=== PATIENT | male | born 1980 ===

== ENCOUNTER 2017-01-27 05:41 | Day surgery (SDC) | payer OTHER ==
--- NOTE | 2017-01-26 18:42 | Pre-Procedure Note/Attestation ---
Pre-Procedure Note/Attestation Complete Prior to Procedure Planned Procedure: bilateral Procedure Narrative: BIlateral ear canalplasty Indications for Procedure Pre-Operative Diagnosis: Bilateral ear canal stenosis Attestation I attest that I discussed the nature of the procedure; its benefits; risks and complications; and alternatives (and the risks and benefits of such alternatives ), prior to the procedure, with the patient (or the patient's legal visitor services representative). I attest that, if there was a reasonable possibility of needing a blood transfusion, the patient (or the patient's legal visitor services representative) was given the [facility] standardized written summary, pursuant to the [place] Blood Safety Act ([place] Health and Safety Code # 1645, as amended). I attest that I re-evaluated the patient just prior to the surgery and that there has been no change in the patient's H&P, Pre op labs, CXR and EKG are not indicated in this otherwise healthy male under 45. MOY RAMIREZ Jan 26, 2017 18:42
--- NOTE | 2017-01-26 21:30 | Pre-op HX & Phy Repo 2 SIG ---
DATE OF ADMISSION: 01/27/2017 DATE OF SURGERY: 01/27/2017. INDICATION FOR SURGERY: The patient with bilateral ear canal stenosis for bilateral canalplasty. PAST MEDICAL HISTORY: Unremarkable for heart, liver, lung, kidney, tobacco, alcohol, or chemical dependency issues. ALLERGIES: No known drug allergies. SOCIAL HISTORY: He is single. No children. He eats all foods. FAMILY MEDICAL HISTORY: Significant for diverticulosis. He has never been a smoker. PHYSICAL EXAMINATION: VITAL SIGNS: He is 70 inches and 170 pounds. BMI 24.39. Blood pressure 120/80 in my office last week. Temperature 98.6, pulse 73, and respiratory rate 13. HEENT: Head, normocephalic. Eyes, pupils are equal, round, and reactive to light and accommodation. Extraocular muscles intact. Ears, bilateral ear canal stenosis. HEART: Normal S1 and S2. No S3 or S4. No murmurs, bruits, gallops, or rubs. CHEST: Clear to auscultation and percussion. ABDOMEN: Soft and nontender. Normoactive bowel sounds. EXTREMITIES: Grossly normal. NEUROLOGIC: Intact. ASSESSMENT: Bilateral ear canal stenosis. PLAN: Bilateral ear canalplasty. I have discussed this with the patient as well as provided him with printed pre op and post op instructions. His hearing will be impaired for a week or two because of the gel inside his ear canals. All risks and benefits have been discussed with the patient in the office last week. He signed consent. He has preop and postop medicines including Seanor for pain. The patient is stable for surgery. He does not need laboratories, as he is otherwise a healthy male under 40 years old. Thank you very much for asking my opinion in the care and treatment of this patient. Jaquan Vargas M.D. DR: RODERICK JOB#: [id number] CC: JUSTIN
[~2017-01-27] VITALS: Ht 177.8 cm; Wt 77.1 kg
[2017-01-27] VITALS (7 sets, daily range): BP systolic 115–130; BP diastolic 53–80
[~2017-01-27 05:41] MED LIST: Dexamethasone 4mg/ml vial IVP ONE; ceFAZolin sod 1 GM in D5W 55 ML IV ONE
[2017-01-27] MEDS ORDERED: NKM (06:12)
--- NOTE | 2017-01-27 06:59 | Anethesia Preoperative Eval ---
Anesthesia Pre-op PMH/ROS General Date of Evaluation: Jan 27, 2017 Anesthesiologist: Daniel ASA Score: ASA 2 Mallampati Score Class I : Soft palate, uvula, fauces, pillars visible Class II: Soft palate, uvula, fauces visible Class III: Soft palate, base of uvula visible Class IV: Only hard plate visible Mallampati Classification: Class II Surgeon: Sam Diagnosis: Bilateral ear canal stenosis Surgical Procedure: Bilateral canalplasty Anesthesia History: none Family History: no anesthesia problems Allergies: Coded Allergies: No Known Allergies (Unverified , 01/26/17) Medications: see eMAR Past Medical History Cardiovascular: Denies: CAD, HTN, NC, arrhythmia, other, valve dz Pulmonary: Denies: COPD, AGA, asthma, other Gastrointestinal/Genitourinary: Denies: CRI, ESRD, GERD, other Neurologic/Psychiatric: Denies: CVA, TIA, dementia, depression/anxiety, other Endocrine: Denies: DM, hypothyroidism, other, steroids HEENT: Reports: other - ear canal stenosis, nasal congestio-chronic, Denies: ABSENTEE-SHAWNEE (L), ABSENTEE-SHAWNEE (R), cataract (L), cataract (R), glaucoma Hematology/Immune: Denies: DVT, anemia, bleeding disorder, other Musculoskeletal/Integumentary: Denies: DDD, DJD, OA, RA, edema, other PSxH Narrative: Vocal cord sx Anesthesia Pre-op Phys. Exam Physician Exam Last Vital Signs Date Time Temp Pulse Resp B/P Pulse Ox O2 Delivery O2 Flow Rate FiO2 01/27/17 06:12 97.9 50 20 130/80 100 Room Air Constitutional: NAD Cardiovascular: RRR Respiratory: CTA Airway Exam Mallampati Score: Class II MO: full ROM: full Teeth: intact Anesthesia Pre-op A/P Labs see chart Studies Pre-op Studies: EKG - sr Risk Assessment & Plan Assessment: ASA II Plan: GA Status Change Before Surgery: No Pre-Antibiotics Drug: Ancef 1g Given Within 1 Hr of Incision: MICHELLE Myers M.D. Jan 27, 2017 06:59
[2017-01-27] MEDS ORDERED: Hydromorphone 0.5mg/0.5ml inj IVP PRN (07:00)
[2017-01-27] MEDS ORDERED: LORazepam Inj 2mg/ml 1ml IV PRN (07:00)
[2017-01-27] MEDS ORDERED: Metoclopramide 10mg/2ml Inj IVP PRN ×2 (07:00→08:45)
[2017-01-27] MEDS ORDERED: Midazolam 2mg/2ml Inj IVP PRN (07:00)
[2017-01-27] MEDS ORDERED: fentaNYL 100 mcg/2 mL IV PRN (07:00)
[2017-01-27] MEDS ORDERED: LR 1000ml 1,000 ML IVLG SCH (07:00)
[2017-01-27] MEDS ORDERED: DiphenhydrAMINE 50mg/ml Inj IVP PRN (07:00)
--- NOTE | 2017-01-27 07:00 | Immediate Post-Op Evaluation ---
Immediate Post-Op Evalulation Immediate Post-Op Evalulation Procedure: Bilateral canalplasty Date of Evaluation: Jan 27, 2017 Time of Evaluation: 08:40 IV Fluids: 700 Blood Products: 0 Estimated Blood Loss: 3 Urinary Output: 0 Blood Pressure Systolic: 115 Blood Pressure Diastolic: 53 Pulse Rate: 59 Respiratory Rate: 16 O2 Sat by Pulse Oximetry: 100 Temperature (Fahrenheit): 97.6 Pain Score (1-10): 0 Nausea: No Vomiting: No Complications 0 Patient Status: awake, reacts, patent, none Hydration Status: adequate Drug: Ancef 1g Given Within 1 Hr of Incision: MICHELLE Myers M.D. Jan 27, 2017 07:00
[2017-01-27] MEDS ORDERED: Neosporin Oint Ud Pkt TOPIC ONE (07:12)
[2017-01-27] MEDS ORDERED: Lidocaine 1% 10mg/ml/Epi 0.005mg/ml 30ml vial INJ ONE (07:12)
[2017-01-27] MEDS ORDERED: Propofol 10mg/ml 20ml IV ONE (07:30)
[2017-01-27] MEDS ORDERED: Midazolam 2mg/2ml Inj ONE (07:30)
[2017-01-27] MEDS ORDERED: Lidocaine 1% MPF 10mg/ml 5ml ONE (07:30)
[2017-01-27] MEDS ORDERED: NS Irrig 1000ml ONE (07:30)
[2017-01-27] MEDS ORDERED: Dexamethasone 4mg/ml vial ONE (07:30)
[2017-01-27] MEDS ORDERED: Metoclopramide 10mg/2ml Inj ONE (07:30)
[2017-01-27] MEDS ORDERED: fentaNYL 250mcg/5ml ONE (07:30)
[2017-01-27] MEDS ORDERED: LR 1000ml ONE (07:30)
[2017-01-27] MEDS ORDERED: Sterile Water Irrig 1000ml IRRIG ONE (07:30)
[2017-01-27] MEDS ORDERED: [UNRECOGNIZED DRUG - OTHER] ORAL ONE (08:30)
--- NOTE | 2017-01-27 08:36 | Brief Operative Note ---
Immediate Post Operative Note Operative Note Chief Complaint: BIlateral ear canal stenosis Pre-op Diagnosis: Bilateral ear canal stenosis Procedure: Repair of bilateral ear canal stenosis Post-op Diagnosis: same as pre-op Surgeon: Moy Ramirez Vp Software Engineering: none Additional Surgeons: none Anesthesiologist: Jose Anesthesia: general Specimen: yes - Right and left ear canal tissue Complications: none Condition: stable Estimated Blood Loss: volume - 10 cc Drains: none Packing: [email or web address] Implant(s) used?: No MOY RAMIREZ Jan 27, 2017 08:36
[2017-01-27] MEDS ORDERED: NORCO 5-325 TA1 EAC1 ORAL (08:38)
--- NOTE | 2017-01-27 08:39 | 48 Hour Post Anesthesia Eval ---
Post Anesthesia Evaluation Procedure: Bilateral canalplasty Date of Evaluation: Jan 27, 2017 Blood Pressure Systolic: 118 0: 67 Pulse Rate: 51 Respiratory Rate: 20 O2 Sat by Pulse Oximetry: 100 Airway: patent Nausea: No Vomiting: No Pain Intensity: 0 Hydration Status: adequate Cardiopulmonary Status: at baseline Mental Status/LOC: patient returned to baseline Post-Anesthesia Complications: 0 Follow-up care needed: ready to discharge MICHELLE WILLIAM M.D. Jan 27, 2017 08:39
--- NOTE | 2017-01-27 08:40 | Discharge Instructions ---
Discharge Instructions Discharge Instructions Follow up with: elmer fregoso-pt has appt already Diet: regular Resume Normal Activity?: No Activity: light activity Pneumonia Vaccine: pt refused vaccine Influenza Vaccine (Mar to Aug): pt refused vaccine Follow Up Orders Pt has printed post op instructions which were reviewed and given to him at his pre op visit in my office 01/20/17. Also given Rx for norco Return to Work/School on: Mar 10, 2017 Special Instructions none beyond printed instructions given to pt as noted above while in my office last week. For Surgical Patients Contact your physician for: bleeding, pain, tenderness, redness, swelling, yellowish discharge in the op. site For Congestive Heart Failure Reminder Report to your physician any weight gain of 5 pounds or more in one week. MOY RAMRIEZ Jan 27, 2017 08:40
[2017-01-27] MEDS ORDERED: HYDROmorphone 1mg/ml Carpuject SUBQ PRN (08:45)
[2017-01-27] MEDS ORDERED: Norco 5mg/325mg tab ORAL PRN (08:45)
--- NOTE | 2017-01-27 21:45 | Operative Note - Dictated ---
DATE OF OPERATION: 01/27/2017 SURGEON: Jaquan Vargas M.D. EMOTIONAL DISABILITIES TEACHER: None. ANESTHESIOLOGIST: Jose. Anesthesia: LMA general anesthesia and 2 mL of 1% lidocaine with 1:100,000 epinephrine. INDICATION FOR SURGERY: Bilateral ear canal stenosis. POSTOPERATIVE DIAGNOSIS: Bilateral ear canal stenosis. FINDINGS: A 60% ear canal stenosis. PROCEDURE: Bilateral repair of ear canal stenosis. Technique: Initially, I addressed the right ear via the microscope. I injected with 1% lidocaine with 1:100,000 epinephrine. for a few minutes. I then used a curette to clean out cerumen in the ear. I then proceeded to clean the ear and used a [place] blade to create a flap laterally that would go inferiorly. I then placed Gelfoam over the intact eardrum and folded the flap down using Belluci elevator. I then used a small straight osteotome to remove the two osteomas that were blocking the ear canal. One was anterior, one was inferior. Utilizing a stapes forceps, I was able to remove the small fragments. Once they were removed, I folded the flap back up that had been reflected medially. We then removed the Gelfoam, the eardrum was intact 100%. I then proceeded to place new Gelfoam with Cortisporin ointment all the way laterally in the ear canal and then once the flap was secured in place, I put antibiotic ointment in the ear as well as Neosporin. The exact same procedure was followed with the other ear. Sponge and needle count was correct. ESTIMATED BLOOD LOSS: 10 mL. COUNTS: None. DRAINS: None. SPECIMEN: Right and left cartilaginous tissue, which was the reason for the bilateral ear canal stenosis. The patient was awake, alert, and stable in the operating room prior to transfer to the recovery room where he also was stable 10 to 15 minutes later. Jaquan Vargas M.D. DR: BREANNA JOB#: [id number] CC: JUSTIN
== END 2017-01-27 10:25 | disposition home or self-care (01) ==
LOC: SUR 05:41
DX: H61.303 Acquired stenosis of external ear canal, unspecified, bilateral (principal); D21.0 Benign neoplasm of connective and other soft tissue of head, face and neck
CPT/HCPCS: 69310; J0690; J1100; J2250; J2405; J2704; J2765; J3010; J7120; 94003; 94150